=== PATIENT | female | born 1985 | race Two or more races ===

== ENCOUNTER 2025-05-08 09:04 | Emergency (ER) | payer MEDICAID ==
[~2025-05-08] VITALS: Ht 162.6 cm; Wt 68.6 kg
[2025-05-08 09:07] VITALS: BP 112/73; PULSE 71; RESP 15; TEMP 97.2; O2SAT 99
== END 2025-05-08 10:06 | disposition left against medical advice (07) ==
LOC: ER 09:04
DX: M54.9 Dorsalgia, unspecified (principal); Z79.899 Other long term (current) drug therapy